=== PATIENT | male | born 1980 | race Caucasian/White ===

== ENCOUNTER 2020-04-08 14:56 | Emergency (ER) | payer MEDICARE, OTHER ==
[~2020-04-08] VITALS: Ht 182.9 cm; Wt 90.7 kg
--- NOTE | 2020-04-08 15:49 | Emergency Department Note ---
History of Present Illnes History of Present Illness Chief Complaint: COVID PUI History of Present Illness This is a 40 year old male . Historian: Patient Arrival Mode: Car Severity: mild Progression: unchanged Chronicity: new Context: Reports recent illness Relieving factors: none Exacerbating factors: none Past Medical/Family History Physician Review I have reviewed the patient's past medical and family history. Any updates have been documented here. Past Medical History Recent Fever: Yes Clinical Suspicion of Infectio: Yes New/Unexplained Change in Ment: No Past Medical History: Hypertension Other Medical History: cerebral palsy Other Surgery: 22 surgeries Social History Physically hurt or threatened: No Review of Systems Review of Systems Constitutional: Reports as per HPI EENTM: Reports no symptoms Cardiovascular: Reports no symptoms Respiratory: Reports as per HPI Gastrointestinal: Reports no symptoms Genitourinary: Reports no symptoms Musculoskeletal: Reports no symptoms Integumentary: Reports no symptoms Neurological: Reports no symptoms Psychological: Reports no symptoms Endocrine: Reports no symptoms Hematological/Lymphatic: Reports no symptoms Physical Exam Related Data Allergies: Coded Allergies: No Known Allergies (Unverified , 04/08/20) Triage Vital Signs Vital Signs Date Time Temp Pulse Resp B/P (MAP) Pulse Ox O2 Delivery O2 Flow Rate FiO2 04/08/20 15:35 99.5 119 22 140/98 97 Room Air Physical Exam CONSTITUTIONAL Constitutional: Present well-developed, Present well-nourished HENT HENT: Present normocephalic, Present atraumatic, Present oropharynx clear/moist, Present nose normal HENT L/R: Present left ext ear normal, Present right ext ear normal EYES Eyes: Reports PERRL, Reports conjunctivae normal NECK Neck: Present ROM normal PULMONARY Pulmonary: Present effort normal, Present breath sounds normal CARDIOVASCULAR Cardiovascular: Present regular rhythm, Present heart sounds normal, Present capillary refill normal, Present normal rate GASTROINTESTINAL Abdominal: Present soft, Present nontender, Present bowel sounds normal GENITOURINARY Genitourinary: Present exam deferred SKIN Skin: Present warm, Present dry MUSCULOSKELETAL Musculoskeletal: Present ROM normal NEUROLOGICAL Neurological: Present alert, Present oriented x 3, Present no gross motor or sensory deficits PSYCHOLOGICAL Psychological: Present mood/affect normal, Present judgement normal Assessment & Plan Medical Decision Making MDM 40-year-old well-appearing male arrives to the ED with complaints of cough fever loss of taste and smell. Patient is clinically presenting with signs and symptoms consistent with Covid 19. Patient informed he is positive until proven otherwise. Patient's oxygen saturation remained 99% even on exertion, no eviden ce of tachypnea or dyspnea noted in the ED. Spoke present length about the importance of sleeping on his stomach and rotating from side to side. Z-Rafa given, signs and symptoms for return discussed. In the light of the Covid pandemic, disaster medicine care was given- patient understands why he was not tested for Covid 19 in the ED, no indications for a chest x-ray at this time given normal oxygen saturation and respiratory status. Assessment & Plan Final Impression: (1) COVID-19 Depart Disposition: HOME, SELF-CARE Last Vital Signs Date Time Temp Pulse Resp B/P (MAP) Pulse Ox O2 Delivery O2 Flow Rate FiO2 04/08/20 15:35 99.5 119 22 140/98 97 Room Air GUZMAN TLELO DO Apr 08, 2020 15:49
== END 2020-04-08 15:44 | disposition home or self-care (01) ==
LOC: ER 15:38
DX: U07.1 COVID-19 (principal); R50.9 Fever, unspecified; R05 Cough; I10 Essential (primary) hypertension; G80.9 Cerebral palsy, unspecified
CPT/HCPCS: 99282